=== PATIENT | male | born 1995 | race Caucasian/White ===

== ENCOUNTER 2016-12-25 22:25 | Emergency (ER) | payer OTHER ==
[~2016-12-25 22:25] MED LIST: OXYBXL10 PO
[2016-12-25 22:32] VITALS: BP 137/78; PULSE 86; RESP 16; TEMP 98.1; O2SAT 97
--- NOTE | 2016-12-25 23:01 | PD ---
HPI Chief Complaint: GI Complaint Time Seen by Provider: 22:41 Travel History International Travel<30 days: No Contact w/Intl Traveler<30days: No Traveled to known affect area: No History of Present Illness HPI The patient is a 21-year-old male with a history of ODD and ADHD and who has considerable problems verbalizing his complaints who complains of a small amount of blood in the stool for the last 2 days. He says he has some pain in the abdomen on occasion but none now. There is been no nausea or vomiting. He quit drinking alcohol many months ago. The blood is bright red. He denies any rectal pain. He denies any syncopal or dyspnea or syncopal spells. The patient apparently drinks large amounts of water. PFSH Past Medical History ADHD: Yes Diminished Hearing: Yes (DEAF SINCE 1 MONTH OF AGE) Immunizations Current: Yes Social History Alcohol Use: No (NOT SINCE 08/24) Tobacco Use: No Allergies-Medications (Allergen,Severity, Reaction): Coded Allergies: amoxicillin (Verified Allergy, Severe, Hives, 12/25/16) Reported Meds & Prescriptions Reported Meds & Active Scripts Active Review of Systems Except as stated in HPI: all other systems reviewed are Neg Physical Exam Narrative GENERAL: The patient is alert, unable to communicate orally except for some basic words which is normal for him, vital signs are normal. He appears in no apparent distress. SKIN: Focused skin assessment warm/dry. HEAD: Atraumatic. Normocephalic. EYES: Pupils equal and round. No scleral icterus. No injection or drainage. ENT: No nasal bleeding or discharge. Mucous membranes pink and moist. NECK: Trachea midline. No JVD. CARDIOVASCULAR: Regular rate and rhythm. No murmur appreciated. RESPIRATORY: No accessory muscle use. Clear to auscultation. Breath sounds equal bilaterally. GASTROINTESTINAL: Abdomen soft, non-tender, nondistended. Hepatic and splenic margins not palpable. No guarding or rebound is present. MUSCULOSKELETAL: No obvious deformities. No clubbing. No cyanosis. No edema. NEUROLOGICAL: Awake and alert. No obvious cranial nerve deficits. Motor grossly within normal limits. Normal speech. PSYCHIATRIC: Appropriate mood and affect; insight and judgment normal. RECTAL EXAM: No masses or tenderness, stool is brown and trace guaiac positive. No hemorrhoids are seen. No fissure is seen. The rectal exam was not particularly painful. Data Data Last Documented VS Vital Signs Date Time Temp Pulse Resp B/P Pulse Ox O2 Delivery O2 Flow Rate FiO2 12/25/16 22:32 98.1 86 16 137/78 97 Orders Complete Blood Count With Diff (12/25/16 22:41) Basic Metabolic Panel (Bmp) (12/25/16 22:41) Labs Laboratory Tests Test 12/25/16 23:00 White Blood Count 8.0 TH/MM3 Red Blood Count 4.42 MIL/MM3 Hemoglobin 13.6 GM/DL Hematocrit 38.2 % Mean Corpuscular Volume 86.5 FL Mean Corpuscular Hemoglobin 30.7 PG Mean Corpuscular Hemoglobin 35.5 % Concent Red Cell Distribution Width 11.8 % Platelet Count 304 TH/MM3 Mean Platelet Volume 7.9 FL Neutrophils (%) (Auto) 63.3 % Lymphocytes (%) (Auto) 25.3 % Monocytes (%) (Auto) 9.2 % Eosinophils (%) (Auto) 1.4 % Basophils (%) (Auto) 0.8 % Neutrophils # (Auto) 5.1 TH/MM3 Lymphocytes # (Auto) 2.0 TH/MM3 Monocytes # (Auto) 0.7 TH/MM3 Eosinophils # (Auto) 0.1 TH/MM3 Basophils # (Auto) 0.1 TH/MM3 CBC Comment DIFF FINAL Differential Comment Sodium Level 137 MEQ/L Potassium Level 3.4 MEQ/L Chloride Level 103 MEQ/L Carbon Dioxide Level 27.8 MEQ/L Anion Gap 6 MEQ/L Blood Urea Nitrogen 13 MG/DL Creatinine 0.93 MG/DL Estimat Glomerular Filtration 101 ML/MIN Rate Random Glucose 105 MG/DL Calcium Level 8.7 MG/DL [facility] Medical Decision Making Medical Screen Exam Complete: Yes Emergency Medical Condition: Yes Medical Record Reviewed: Yes Interpretation(s) The basic metabolic profile shows a potassium of 3.4 but is otherwise normal. The CBC is normal except for a hemoglobin of 38.2. Differential Diagnosis Lower GI bleed, rectal fissure, hemorrhoidal bleeding, rectal abscess, diverticular bleed, other colon/lower GI bleed, anemia, electrolyte disorder Narrative Course The patient has bright red rectal bleeding by history. There is only a trace amount of broad and brown stool on rectal exam. He does not show any significant anemia. The bleeding is from above the rectum and could be diverticular bleeding or any bleeding above the colon. There is no evidence on physical exam for any abscess, fissure or hemorrhoid. Diagnosis Primary Impression: Lower GI bleed Additional Instructions: Usually this goes away by itself but if this persists into next week he will need to see a senior marketing associate or colorectal surgeon who can scope him from below and find a source of the bleeding. If you think his bleeding is much greater than it has been, return him to the emergency department. Med/Other Pt SpecificInfo: No Change to Meds Disposition: 01 DISCHARGE HOME Condition: Stable Abhi Alcantara MD Dec 25, 2016 23:01
[2016-12-25 23:13] LABS: AUTOMATED NEUTROPHIL # 5.1 TH/MM3 (1.8-7.7); BASOPHIL # 0.1 TH/MM3 (0-0.2); BASOPHIL % 0.8 % (0.0-2.0); EOSINOPHIL # 0.1 TH/MM3 (0-0.4); EOSINOPHIL % 1.4 % (0.0-4.0); HEMATOCRIT 38.2 % (39.0-51.0); HEMO FLAGS DIFF FINAL; LYMPH % 25.3 % (9.0-44.0); MEAN CELL VOLUME 86.5 FL (80.0-100.0); MEAN CORPUSCULAR HEMOGLOBIN 30.7 PG (27.0-34.0); MEAN CORPUSCULAR HGB CONC 35.5 % (32.0-36.0); MONO % 9.2 % (0.0-8.0); NEUT % 63.3 % (16.0-70.0); PLATELET COUNT 304 TH/MM3 (150-450); RED BLOOD COUNT 4.42 MIL/MM3 (4.50-5.90); RED CELL DISTRIBUTION WIDTH 11.8 % (11.6-17.2)
[2016-12-25 23:20] LABS: POTASSIUM 3.4 MEQ/L (3.5-5.1)
[2016-12-25 23:23] LABS: BICARBONATE 27.8 MEQ/L (21.0-32.0)
[2016-12-26 00:26] VITALS: BP 142/76
== END 2016-12-26 00:28 | disposition home or self-care (01) ==
LOC: PHED 22:25
DX: K92.2 Gastrointestinal hemorrhage, unspecified (principal); H91.90 Unspecified hearing loss, unspecified ear; Z86.59 Personal history of other mental and behavioral disorders
CPT/HCPCS: 80048; 85025; 99283

== ENCOUNTER 2017-08-14 13:10 | Emergency (ER) | payer OTHER ==
[~2017-08-14] VITALS: Ht 182.9 cm; Wt 99.0 kg
[2017-08-14 13:23] VITALS: BP 120/79; PULSE 101; RESP 16; TEMP 98; O2SAT 99
[2017-08-14 13:33] VITALS: BP 157/87; PULSE 84; RESP 16; TEMP 98.1; O2SAT 97
[2017-08-14] MEDS ORDERED: SODIUM CHLOR 0.9% 1000 ML INJ 1,000 ML IV SCH (14:26)
--- NOTE | 2017-08-14 14:26 | PD ---
HPI Chief Complaint: GI Complaint Time Seen by Provider: 14:07 Travel History International Travel<30 days: No Contact w/Intl Traveler<30days: No Traveled to known affect area: No History of Present Illness HPI Patient is a 22-year-old deaf individual who presents emergency department with mother for evaluation of epigastric pain. Patient has a secondary complaint that he went out with friends of the night and was drinking and was encouraged to have a cigarette with cocaine in it as well as do a line of cocaine which she has never done before. Patient states is been very anxious since then and is worried that the substance may have caused him significant harm. He endorses few episodes of emesis, no diarrhea no constipation. He states his never happened to him like this before. He is concerned that he might have an ulcer. Mother does all of his translating for him and they have declined a entrepreneurial finance professor. No fevers no cough no congestion. States symptoms are moderate, epigastric, no radiation, context as above. PFSH Past Medical History ADHD: Yes Diminished Hearing: Yes (DEAF SINCE 1 MONTH OF AGE) Immunizations Current: Yes ?: Not Past Surgical History Surgical History: No Previous Surgery Social History Alcohol Use: No (NOT SINCE 08/24) Tobacco Use: No Substance Use: Yes (cocaine with marijuana 3 days ago) Allergies-Medications (Allergen,Severity, Reaction): Coded Allergies: amoxicillin (Verified Allergy, Severe, Hives, 08/14/17) Reported Meds & Prescriptions Reported Meds & Active Scripts Active Zofran (Ondansetron HCl) 4 Mg Tab 4 Mg PO Q6HR PRN Review of Systems Except as stated in HPI: all other systems reviewed are Neg Physical Exam Narrative GENERAL: Well-developed well-nourished no obvious distress. SKIN: Focused skin assessment warm/dry. HEAD: Atraumatic. Normocephalic. EYES: Pupils equal and round. No scleral icterus. No injection or drainage. ENT: No nasal bleeding or discharge. Mucous membranes pink and moist. NECK: Trachea midline. No JVD. CARDIOVASCULAR: Regular rate and rhythm. No murmur appreciated. RESPIRATORY: No accessory muscle use. Clear to auscultation. Breath sounds equal bilaterally. GASTROINTESTINAL: Abdomen soft, non-tender, nondistended. Hepatic and splenic margins not palpable. MUSCULOSKELETAL: No obvious deformities. No clubbing. No cyanosis. No edema. NEUROLOGICAL: Awake and alert. Patient is deaf otherwise no obvious cranial nerve deficits. Motor grossly within normal limits. Normal speech. PSYCHIATRIC: Appropriate mood and affect; insight and judgment normal. Data Data Last Documented VS Vital Signs Date Time Temp Pulse Resp B/P (MAP) Pulse Ox O2 Delivery O2 Flow Rate FiO2 08/14/17 17:41 08/14/17 17:05 75 17 97 Room Air 08/14/17 13:33 98.1 Orders Orders Complete Blood Count With Diff (08/14/17 14:26) Comprehensive Metabolic Panel (08/14/17 14:26) Lipase (08/14/17 14:26) Iv Access Insert/Monitor (08/14/17 14:26) Ecg Monitoring (08/14/17 14:26) Oximetry (08/14/17 14:26) Sodium Chlor 0.9% 1000 Ml Inj (Ns 1000 M (08/14/17 14:26) Sodium Chloride 0.9% Flush (Ns Flush) (08/14/17 14:30) Electrocardiogram (08/14/17 14:26) Creatine Kinase (Cpk) (08/14/17 14:36) Ct Abd/Pel W Iv Contrast(Rout) (08/14/17 ) Iohexol 350 Inj (Omnipaque 350 Inj) (08/14/17 16:56) Ed Discharge Order (08/14/17 17:22) Ketorolac Inj (Toradol Inj) (08/14/17 17:30) Labs Laboratory Tests Test 08/14/17 14:26 08/14/17 14:39 Total Creatine Kinase 227 U/L White Blood Count 15.1 TH/MM3 Red Blood Count 4.98 MIL/MM3 Hemoglobin 15.3 GM/DL Hematocrit 43.9 % Mean Corpuscular Volume 88.2 FL Mean Corpuscular Hemoglobin 30.7 PG Mean Corpuscular Hemoglobin Concent 34.8 % Red Cell Distribution Width 12.4 % Platelet Count 364 TH/MM3 Mean Platelet Volume 7.3 FL Neutrophils (%) (Auto) 87.6 % Lymphocytes (%) (Auto) 7.8 % Monocytes (%) (Auto) 4.1 % Eosinophils (%) (Auto) 0.2 % Basophils (%) (Auto) 0.3 % Neutrophils # (Auto) 13.3 TH/MM3 Lymphocytes # (Auto) 1.2 TH/MM3 Monocytes # (Auto) 0.6 TH/MM3 Eosinophils # (Auto) 0.0 TH/MM3 Basophils # (Auto) 0.0 TH/MM3 CBC Comment DIFF FINAL Differential Comment Blood Urea Nitrogen 13 MG/DL Creatinine 0.85 MG/DL Random Glucose 111 MG/DL Total Protein 8.4 GM/DL Albumin 4.3 GM/DL Calcium Level 9.2 MG/DL Alkaline Phosphatase 65 U/L Aspartate Amino Transf (AST/SGOT) 20 U/L Alanine Aminotransferase (ALT/SGPT) 43 U/L Total Bilirubin 0.7 MG/DL Sodium Level 138 MEQ/L Potassium Level 3.6 MEQ/L Chloride Level 103 MEQ/L Carbon Dioxide Level 27.1 MEQ/L Anion Gap 8 MEQ/L Estimat Glomerular Filtration Rate 111 ML/MIN Lipase 1810 U/L [facility] Medical Decision Making Medical Screen Exam Complete: Yes Emergency Medical Condition: Yes Differential Diagnosis Pancreatitis, gallstone pancreatitis, alcoholic pancreatitis, pancreatitis associated with hyperlipidemia, cholecystitis, gastritis, gastroenteritis, peptic ulcer disease Narrative Course Patient was room to the emergency department, he appears well in no obvious distress, abdomen is benign. His lipase was slightly elevated but he has not had any emesis today. He is feeling well after Toradol and would like to go home. I discussed CAT scan of the abdomen with him and his mother, CAT scan showed no significant abnormality: Last 24 hours Impressions Abdomen/Pelvis CT 08/14/17 0000 Signed Impressions: Service Date/Time: Monday, August 14, 2017 16:36 - CONCLUSION: 1. Negative CT scan of the abdomen and pelvis. Keanu Coppola MD Discussed the results with him and mother, discussed follow-up with primary care physician and symptomatic management and return to ED criteria. He was referred to a delivery mgr. He is stable for discharge Diagnosis Primary Impression: Acute pancreatitis Referrals: Maia Perez MD Med/Other Pt SpecificInfo: Prescription(s) given Scripts Ondansetron (Zofran) 4 Mg Tab 4 MG PO Q6HR Y for NAUSEA OR VOMITING, #20 TAB 0 Refills Prov: Sly Denson MD 08/14/17 Disposition: 01 DISCHARGE HOME Condition: Stable Sly Denson MD Aug 14, 2017 14:26
[2017-08-14 14:38] VITALS: O2SAT 97
[2017-08-14] MEDS: SODIUM CHLORIDE 0.9% FLUSH 10 ML FLUSH IV FLUSH PRN ×2 (14:41→17:31)
[2017-08-14 14:45] LABS: AUTOMATED NEUTROPHIL # 13.3 TH/MM3 (1.8-7.7); BASOPHIL % 0.3 % (0.0-2.0); EOSINOPHIL % 0.2 % (0.0-4.0); HEMATOCRIT 43.9 % (39.0-51.0); HEMOGLOBIN 15.3 GM/DL (13.0-17.0); LYMPH % 7.8 % (9.0-44.0); LYMPHOCYTE # 1.2 TH/MM3 (1.0-4.8); MEAN CELL VOLUME 88.2 FL (80.0-100.0); MEAN CORPUSCULAR HEMOGLOBIN 30.7 PG (27.0-34.0); MEAN CORPUSCULAR HGB CONC 34.8 % (32.0-36.0); MEAN PLATELET VOLUME 7.3 FL (7.0-11.0); MONO % 4.1 % (0.0-8.0); MONOCYTE # 0.6 TH/MM3 (0-0.9); NEUT % 87.6 % (16.0-70.0); PLATELET COUNT 364 TH/MM3 (150-450); RED BLOOD COUNT 4.98 MIL/MM3 (4.50-5.90); RED CELL DISTRIBUTION WIDTH 12.4 % (11.6-17.2); WHITE BLOOD COUNT 15.1 TH/MM3 (4.0-11.0)
[2017-08-14 14:55] LABS: CHLORIDE 103 MEQ/L (98-107); SODIUM (NA) 138 MEQ/L (136-145)
[2017-08-14 14:59] LABS: ALBUMIN 4.3 GM/DL (3.4-5.0); BICARBONATE 27.1 MEQ/L (21.0-32.0); BLOOD UREA NITROGEN 13 MG/DL (7-18); CALCIUM 9.2 MG/DL (8.5-10.1); GLUCOSE,RANDOM 111 MG/DL (74-106)
[2017-08-14 15:02] LABS: ALT (GPT) 43 U/L (12-78); AST (GOT) 20 U/L (15-37); CREATININE 0.85 MG/DL (0.60-1.30); GLOMERULAR FILTRATION RATE 111 ML/MIN (>89)
[2017-08-14 15:04] LABS: TOTAL BILIRUBIN ADULT 0.7 MG/DL (0.2-1.0); TOTAL PROTEIN 8.4 GM/DL (6.4-8.2)
[2017-08-14 15:05] LABS: ALKALINE PHOSPHATASE 65 U/L (45-117)
[2017-08-14] MEDS ORDERED: IOHEXOL 350 MG/ML 10 ML VIAL (for RAD DIAG) IVCONTRAST ONE (16:56)
[2017-08-14 17:05] VITALS: BP 146/81; PULSE 75; RESP 17; O2SAT 97
--- NOTE | 2017-08-14 17:18 | RADRPT ---
EXAM DATE/TIME: 08/14/2017 16:36 [facility] COMPARISON: No previous studies available for comparison. INDICATIONS : Abdominal pain. IV CONTRAST: 75 cc Omnipaque 350 (iohexol) IV ORAL CONTRAST: No oral contrast ingested. RADIATION DOSE: 14.45 CTDIvol (mGy) MEDICAL HISTORY : None SURGICAL HISTORY : None. ENCOUNTER: Initial ACUITY: 2 days PAIN SCALE: 5/10 LOCATION: abdomen TECHNIQUE: Volumetric scanning of the abdomen and pelvis was performed. Using automated exposure control and ad justment of the mA and/or kV according to patient size, radiation dose was kept as low as reasonably achievable to obtain optimal diagnostic quality images. DICOM format image data is available electro nically for review and comparison. FINDINGS: LOWER LUNGS: The visualized lower lungs are clear. LIVER: Homogeneous density without lesion. There is no dilation of the biliary tree. No calcified gallston es. SPLEEN: Normal size without lesion. PANCREAS: Within normal limits. KIDNEYS: Normal in size and shape. There is no mass, stone or hydronephrosis. ADRENAL GLANDS: Within normal limits. VASCULAR: There is no aortic aneurysm. BOWEL/MESENTERY: The stomach, small bowel, and colon demonstrate no acute abnormality. There is no free intraperitone al air or fluid. ABDOMINAL WALL: Within normal limits. RETROPERITONEUM: There is no lymphadenopathy. BLADDER: No wall thickening or mass. REPRODUCTIVE: Within normal limits. INGUINAL: There is no lymphadenopathy or hernia. MUSCULOSKELETAL: Within normal limits for patient age. CONCLUSION: 1. Negative CT scan of the abdomen and pelvis. Keanu Coppola MD on August 14, 2017 at 17:14 Board Certified Radiologist. This report was verified electronically.
[2017-08-14] MEDS ORDERED: ZOFR4TAB PO (17:25)
[2017-08-14] MEDS ORDERED: KETOROLAC TROMETHAMINE 30 MG/ML (IVP) VIAL IV PUSH ONE (17:30)
--- NOTE | 2017-08-16 09:41 | EKG ---
Date Performed: 08/14/2017 Time Performed: 14:33:32 PTAGE: 22 years EKG: Sinus rhythm NORMAL ECG NO PREVIOUS TRACING DOCTOR: Wilson Mcmanus Interpretating Date/Time 08/16/2017 09:41:04
== END 2017-08-14 17:42 | disposition home or self-care (01) ==
LOC: PHED 13:10
DX: K85.90 Acute pancreatitis without necrosis or infection, unspecified (principal); F90.9 Attention-deficit hyperactivity disorder, unspecified type; H91.90 Unspecified hearing loss, unspecified ear
CPT/HCPCS: 74177; 80053; 82550; 83690; 85025; 93005; 96361; 96374; 99285; J1885; J7030; Q9967

== ENCOUNTER 2017-09-30 14:31 | Observation (INO) | payer OTHER ==
[~2017-09-30] VITALS: Ht 182.9 cm; Wt 96.0 kg
[~2017-09-30 14:31] MED LIST changes: -OXYBXL10 PO; +ZOFR4TAB PO
[2017-09-30 14:34] VITALS: BP 147/87; PULSE 82; RESP 16; TEMP 98.8; O2SAT 98
[2017-09-30] MEDS ORDERED: SODIUM CHLOR 0.9% 1000 ML INJ 1,000 ML IV SCH (14:56)
[2017-09-30] MEDS ORDERED: ONDANSETRON ODT 4 MG TAB PO ONE (15:00)
[2017-09-30] MEDS ORDERED: SODIUM CHLORIDE 0.9% FLUSH 10 ML FLUSH IV FLUSH PRN ×2 (15:00→17:45)
[2017-09-30] MEDS ORDERED: PANTOPRAZOLE SOD 40 MG DELAYED RELEASE TAB PO ONE (15:00)
--- NOTE | 2017-09-30 15:14 | PD ---
HPI Chief Complaint: GI Complaint Time Seen by Provider: 14:52 Travel History International Travel<30 days: No Contact w/Intl Traveler<30days: No Traveled to known affect area: No History of Present Illness HPI 22-year-old male complains of abdominal pain with nausea vomiting diarrhea. Patient states that he has intermittent abdominal pain for the past several months. Patient stated pain and cramping pain and sharp pain localized around epigastric area. Patient denies any pain radiation. Patient states that he has increasing pain for the past 3 days. Patient states that he has intermittent nausea vomiting diarrhea for the past 3 days. Patient complains of coughing congestion with productive sputum for the past several days also. Patient denies any fever chills. Patient denies any dysuria frequency. Patient was seen in emergency room 6 weeks ago for abdominal pain. CT scan abdomen pelvis at that time was normal. Lipase was elevated. Patient was diagnosed with acute hepatitis. Patient was discharged home and was advised to follow with pouncing lathe operator. Patient has not had an appointment with gastroenterology so far. On a scale of 1-10 the pain is a 7. Patient is deaf and mom does all the interpretations. PFSH Past Medical History ADHD: Yes Anxiety: Yes Diminished Hearing: Yes (DEAF SINCE 1 MONTH OF AGE) Immunizations Current: Yes Influenza Vaccination: No Past Surgical History Surgical History: No Previous Surgery Social History Alcohol Use: No (NOT SINCE 08/24) Tobacco Use: No Substance Use: No Allergies-Medications (Allergen,Severity, Reaction): Coded Allergies: amoxicillin (Verified Allergy, Severe, Hives, 09/30/17) Reported Meds & Prescriptions Reported Meds & Active Scripts Active Review of Systems General / Constitutional: No: Fever Eyes: No: Visual changes HENT: No: Headaches Cardiovascular: No: Chest Pain or Discomfort Respiratory: Positive: Cough, No: Shortness of Breath Gastrointestinal: Positive: Nausea, Vomiting, Diarrhea, Abdominal Pain Genitourinary: No: Dysuria Musculoskeletal: No: Pain Skin: No Rash Neurologic: No: Weakness Psychiatric: No: Depression Endocrine: No: Polydipsia Hematologic/Lymphatic: No: Easy Bruising Physical Exam Narrative GENERAL: Well-nourished, well-developed patient. SKIN: Focused skin assessment warm/dry. HEAD: Normocephalic. EYES: No scleral icterus. No injection or drainage. NECK: Supple, trachea midline. No JVD or lymphadenopathy. CARDIOVASCULAR: Regular rate and rhythm without murmurs, gallops, or rubs. RESPIRATORY: Breath sounds equal bilaterally. No accessory muscle use. GASTROINTESTINAL: Abdomen soft, nondistended. Patient has mild tenderness on palpation epigastric area. No rebound tenderness. No mass. MUSCULOSKELETAL: No cyanosis, or edema. BACK: Nontender without obvious deformity. No CVA tenderness. Neurologic exam normal. Data Data Last Documented VS Vital Signs Date Time Temp Pulse Resp B/P (MAP) Pulse Ox O2 Delivery O2 Flow Rate FiO2 09/30/17 15:26 87 18 146/85 (105) 98 Room Air 09/30/17 14:34 98.8 Orders Orders Complete Blood Count With Diff (09/30/17 14:56) Comprehensive Metabolic Panel (09/30/17 14:56) Lipase (09/30/17 14:56) Urinalysis - C+S If Indicated (09/30/17 14:56) Iv Access Insert/Monitor (09/30/17 14:56) Ecg Monitoring (09/30/17 14:56) Oximetry (09/30/17 14:56) Sodium Chlor 0.9% 1000 Ml Inj (Ns 1000 M (09/30/17 14:56) Sodium Chloride 0.9% Flush (Ns Flush) (09/30/17 15:00) Ondansetron Odt (Zofran Odt) (09/30/17 15:00) Pantoprazole (Protonix) (09/30/17 15:00) Ct Abd/Pel W Iv Contrast(Rout) (09/30/17 15:07) Chest, Single Ap (09/30/17 15:12) Labs Laboratory Tests Test 09/30/17 15:15 White Blood Count 9.9 TH/MM3 Red Blood Count 5.14 MIL/MM3 Hemoglobin 15.4 GM/DL Hematocrit 45.1 % Mean Corpuscular Volume 87.8 FL Mean Corpuscular Hemoglobin 30.0 PG Mean Corpuscular Hemoglobin Concent 34.2 % Red Cell Distribution Width 11.9 % Platelet Count 399 TH/MM3 Mean Platelet Volume 7.7 FL Neutrophils (%) (Auto) 83.6 % Lymphocytes (%) (Auto) 11.4 % Monocytes (%) (Auto) 4.6 % Eosinophils (%) (Auto) 0.0 % Basophils (%) (Auto) 0.4 % Neutrophils # (Auto) 8.3 TH/MM3 Lymphocytes # (Auto) 1.1 TH/MM3 Monocytes # (Auto) 0.5 TH/MM3 Eosinophils # (Auto) 0.0 TH/MM3 Basophils # (Auto) 0.0 TH/MM3 CBC Comment DIFF FINAL Differential Comment Blood Urea Nitrogen 13 MG/DL Creatinine 1.00 MG/DL Random Glucose 110 MG/DL Total Protein 9.2 GM/DL Albumin 4.8 GM/DL Calcium Level 9.9 MG/DL Alkaline Phosphatase 69 U/L Aspartate Amino Transf (AST/SGOT) 15 U/L Alanine Aminotransferase (ALT/SGPT) 34 U/L Total Bilirubin 0.8 MG/DL Sodium Level 139 MEQ/L Potassium Level 3.5 MEQ/L Chloride Level 104 MEQ/L Carbon Dioxide Level 27.9 MEQ/L Anion Gap 7 MEQ/L Estimat Glomerular Filtration Rate 92 ML/MIN Lipase 1889 U/L [facility] Medical Decision Making Medical Screen Exam Complete: Yes Emergency Medical Condition: Yes Interpretation(s) Last Impressions Chest X-Ray 09/30/17 1512 Signed Impressions: CONCLUSION: No active disease. 1551 PM. CBC within normal limits. WBC 9.9. 83 neutrophil. CMP within normal limits. Lipase 1889. Differential Diagnosis Differential diagnosis including gastritis, PUD, thank otitis, cholecystitis, colitis, UTI, pyelonephritis, nephrolithiasis, appendicitis. Narrative Course 22-year-old male with epigastric abdominal pain nausea vomiting diarrhea. History of recurrent abdominal pain. Normal saline solution 125 cc an hour. Protonix 40 mg p.o. Zofran 4 mg ODT. Diagnosis Primary Impression: Acute pancreatitis Qualified Codes: K85.90 - Acute pancreatitis without necrosis or infection, unspecified Admitting Information Admitting Physician Requests: Observation John Delvalle MD September 30, 2017 15:14
[2017-09-30 15:22] LABS: BLOOD, URINE NEG (NEG); GLUCOSE,URINE NEG (NEG); KETONE, URINE 80 OR GREATER mg/dL (NEG); NITRITE,URINE NEG (NEG); PH, URINE 5.5 (5.0-8.5); URINE COLOR YELLOW (YELLW/STRAW); URINE LEUKOCYTE ESTERASE NEG (NEG)
[2017-09-30 15:24] LABS: AUTOMATED NEUTROPHIL # 8.3 TH/MM3 (1.8-7.7); BASOPHIL % 0.4 % (0.0-2.0); HEMATOCRIT 45.1 % (39.0-51.0); HEMOGLOBIN 15.4 GM/DL (13.0-17.0); LYMPH % 11.4 % (9.0-44.0); LYMPHOCYTE # 1.1 TH/MM3 (1.0-4.8); MEAN CELL VOLUME 87.8 FL (80.0-100.0); MEAN CORPUSCULAR HGB CONC 34.2 % (32.0-36.0); MEAN PLATELET VOLUME 7.7 FL (7.0-11.0); MONO % 4.6 % (0.0-8.0); MONOCYTE # 0.5 TH/MM3 (0-0.9); NEUT % 83.6 % (16.0-70.0); PLATELET COUNT 399 TH/MM3 (150-450); RED BLOOD COUNT 5.14 MIL/MM3 (4.50-5.90); RED CELL DISTRIBUTION WIDTH 11.9 % (11.6-17.2); WHITE BLOOD COUNT 9.9 TH/MM3 (4.0-11.0)
[2017-09-30 15:25] VITALS: RESP 20; O2SAT 98
[2017-09-30 15:26] VITALS: BP 146/85; PULSE 87; RESP 18; O2SAT 98
[2017-09-30 15:29] LABS: CHLORIDE 104 MEQ/L (98-107); SODIUM (NA) 139 MEQ/L (136-145)
[2017-09-30 15:32] LABS: CALCIUM 9.9 MG/DL (8.5-10.1)
[2017-09-30 15:33] LABS: ALBUMIN 4.8 GM/DL (3.4-5.0); BICARBONATE 27.9 MEQ/L (21.0-32.0); BLOOD UREA NITROGEN 13 MG/DL (7-18); GLUCOSE,RANDOM 110 MG/DL (74-106)
[2017-09-30 15:35] LABS: ALT (GPT) 34 U/L (12-78); AST (GOT) 15 U/L (15-37)
[2017-09-30 15:36] LABS: GLOMERULAR FILTRATION RATE 92 ML/MIN (>89)
[2017-09-30 15:37] LABS: TOTAL BILIRUBIN ADULT 0.8 MG/DL (0.2-1.0); TOTAL PROTEIN 9.2 GM/DL (6.4-8.2)
[2017-09-30 15:38] LABS: ALKALINE PHOSPHATASE 69 U/L (45-117)
--- NOTE | 2017-09-30 15:45 | RADRPT ---
EXAM DATE: 09/30/2017 3:37 PM EDT AGE/SEX: 22 years / Male INDICATIONS: Cough and congestion. CLINICAL DATA: This is the patient's initial encounter. Patient reports that signs and symptoms have been present for 3 days and indicates a pain score of 0/10. MEDICAL/SURGICAL HISTORY: None. None. COMPARISON: No prior [place] exams available for comparison. FINDINGS: A single AP view of the chest demonstrates the lungs to be symmetrically aerated without evidence of mass, infiltrate or effusion. The cardiomediastinal contours are unremarkable. Osseous structures a re intact. CONCLUSION: No active disease. Electronically signed by: Mynor Boone MD 09/30/2017 3:44 PM EDT
[2017-09-30] MEDS ORDERED: IOHEXOL 350 MG/ML 10 ML VIAL (for RAD DIAG) IVCONTRAST ONE (16:01)
[2017-09-30 16:02] LABS: BILIRUBIN, URINE NEG (NEG)
[2017-09-30 16:04] LABS: RBC, URINE 0-3 /hpf (0-3); SQUAMOUS EPITHELIAL CELL URINE 0-5 /hpf (0-5); WBC, URINE 0-2 /hpf (0-5)
--- NOTE | 2017-09-30 16:09 | RADRPT ---
EXAM DATE: 09/30/2017 4:00 PM EDT AGE/SEX: 22 years / Male INDICATIONS: Epigastric pain. Nausea, vomiting and diarrhea. CLINICAL DATA: This is the patient's initial encounter. Patient reports that signs and symptoms have been present for 3 days and indicates a pain score of 7/10. MEDICAL/SURGICAL HISTORY: None. None. ORAL CONTRAST: No oral contrast ingested. RADIATION DOSE: 15.82 CTDI (mGy) COMPARISON: [facility], CT ABDOMEN & PELVIS W CONTRAST, 08/14/2017. . TECHNIQUE: Multiple contiguous axial images were obtained through the abdomen and pelvis following b olus infusion of 90 ml Omnipaque 350 (iohexol) nonionic water-soluble contrast as a single exam dos e. No oral contrast ingested. Using automated exposure control and adjustment of the mA and/or kV ac cording to patient size, the radiation dose was kept as low as reasonably achievable to obtain optima l diagnostic quality images. FINDINGS: LOWER LUNGS: The visualized lower lungs are clear. LIVER: The liver has a homogeneous density without space-occupying lesion. There is no dilation of t he biliary tree. SPLEEN: Homogeneous density without enlargement. PANCREAS: Unremarkable without mass or calcification. KIDNEYS: Kidneys demonstrate symmetrical enhancement and are symmetrical in size without evidence fo r radiopaque renal calculi or hydronephrosis. ADRENAL GLANDS: Unremarkable. AORTA: Maggy-aneurysmal. BOWEL/MESENTERY: The bowel loops are grossly unremarkable. The cecum and sigmoid colon have a rosalia l configuration. Appendix is normal in appearance. ABDOMINAL WALL: Intact. RETROPERITONEUM: No evidence of adenopathy in the retrocrural, para-aortic, or deep pelvic regions. BLADDER: Contours are smooth. REPRODUCTIVE: No abnormal masses or calcifications seen. BONY STRUCTURES: Unremarkable. CONCLUSION: 1. No acute CT abnormality to account for patient's abdominal pain. 2. Normal appendix. Electronically signed by: Herberth Garner MD 09/30/2017 4:08 PM EDT
[2017-09-30 16:48] VITALS: BP 154/78; PULSE 84; RESP 18; O2SAT 98
--- NOTE | 2017-09-30 17:44 | HHI.HP ---
[facility] Service [place] [facility] Primary Care Physician No Primary Care Physician Admission Diagnosis Acute pancreatitis Diagnoses: (1) Elevated lipase Diagnosis: Principal Chief Complaint: Chronic abdominal pain Travel History International Travel<30 Days: No Contact w/Intl Traveler <30 Da: No Traveled to Known Affected Are: No History of Present Illness Written by Grayson Alcantara, acting as scribe for Dr. Poon on 09/30/17 at 17: 43. 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 Information was taken from mother and patient. Mother acting as per diem interpreter with sign language. Apparently the patient needs to have a rather extensive drinking habit from age [age] and he quit drinking because he had significant headache and abdominal pain 1 year ago. Since then he has been having intermittent abdominal pain mainly located in the epigastric region without any radiation into the back. Patient has had previous workup done in the emergency department and found to have elevated lipase level without any radiological findings for pancreatitis. Apparently over the last 3 days the patient has been experiencing his epigastric abdominal discomfort again without any radiation. He has had some nausea and vomiting one episode last night and one episode today with yellow vomitus. He did have some diarrhea this morning. Mother indicates that he has been very anxious about his discomfort and has text her numerous amount of times. Patient was brought to the emergency department for evaluation and again was found to have an elevated lipase level without any radiological finding of pancreatitis or abnormality. Is recommended by the ER physician the patient be observed in the hospital for further evaluation and management. Patient family does have significant history with generation jumps of the sensorineural hearing loss. His younger brother also has hypertension as well as hyperlipidemia. Mother indicates that herself as well as her family have significant history of ulcers and GI problems. Review of Systems Ears, nose, mouth, throat: COMPLAINS OF: Hearing loss Gastrointestinal: COMPLAINS OF: Abdominal pain, Diarrhea, Nausea, Vomiting Except as stated in HPI: all other systems reviewed are Neg Past Family Social History Past Medical History History of alcohol abuse Central neural hearing loss Anxiety History of tobacco use Past Surgical History No previous surgeries Reported Medications No home medication Allergies: Coded Allergies: amoxicillin (Verified Allergy, Severe, Hives, 09/30/17) Family History Reviewed is significant for a younger brother with hypertension, hyperlipidemia. Mother indicates that her family is significant for gastric ulcers Social History Patient quit using alcohol approximately 1 year ago, prior to that he smoked from age [age] and he indicates that he drinks quite a bit to include a whole bottle of alcohol and beer daily. Patient did have history of tobacco use in which he smoked from age [age], 1 pack of cigarettes a day. Denies any illicit drug use Physical Exam Vital Signs Vital Signs Date Time Temp Pulse Resp B/P (MAP) Pulse Ox O2 Delivery O2 Flow Rate FiO2 09/30/17 16:48 84 18 154/78 (103) 98 Room Air 09/30/17 15:26 87 18 146/85 (105) 98 Room Air 09/30/17 15:25 20 98 Room Air 09/30/17 14:34 98.8 82 16 147/87 (107) 98 Physical Exam GENERAL: Well-developed, well-nourished, in no acute distress. alert and orientated HEENT: Head is normocephalic without any lesions or masses noted. Facial features are symmetric. Eyes: Pupils equal round reactive to light. Extraocular muscles are intact. Conjunctivae were clear. Oropharyngeal: Pharynx without any erythema edema. Tongue is midline without deviation. Buccal mucosa is moist without any masses or lesions NECK: Supple without any masses. Trachea midline no deviation. No JVD, no bruits are appreciated CARDIAC: Regular rhythm, regular rate. S1/S2 are heard. No murmurs gallops or rubs. LUNGS: Clear to auscultation bilaterally. No wheeze, rhonchi or rales. No use of accessory muscles on inspiration or expiration. ABDOMEN: Soft, mild tenderness noted in the epigastric region. Nondistended. Bowel sounds heard in all 4 quadrants. No organomegaly or masses. Negative rebound, negative guarding EXTREMITIES: No edema, pulses are equal bilaterally. No cyanosis or clubbing NEUROLOGY: Mood and affect appear appropriate. Cranial nerves II through XII grossly intact. Muscle strength 5/5 in upper and lower extremities bilaterally. Deep tendon reflexes are 2+ in upper and lower extremities bilaterally. Laboratory Laboratory Tests Test 09/30/17 15:15 White Blood Count 9.9 Red Blood Count 5.14 Hemoglobin 15.4 Hematocrit 45.1 Mean Corpuscular Volume 87.8 Mean Corpuscular Hemoglobin 30.0 Mean Corpuscular Hemoglobin Concent 34.2 Red Cell Distribution Width 11.9 Platelet Count 399 Mean Platelet Volume 7.7 Neutrophils (%) (Auto) 83.6 Lymphocytes (%) (Auto) 11.4 Monocytes (%) (Auto) 4.6 Eosinophils (%) (Auto) 0.0 Basophils (%) (Auto) 0.4 Neutrophils # (Auto) 8.3 Lymphocytes # (Auto) 1.1 Monocytes # (Auto) 0.5 Eosinophils # (Auto) 0.0 Basophils # (Auto) 0.0 CBC Comment DIFF FINAL Differential Comment Urine Collection Type CLEAN CATCH Urine Color YELLOW Urine Turbidity CLEAR Urine pH 5.5 Urine Specific [place] GREATER/EQUAL 1.030 Urine Protein TRACE Urine Glucose (UA) NEG Urine Ketones 80 OR GREATER Urine Occult Blood NEG Urine Nitrite NEG Urine Bilirubin NEG Urine Urobilinogen 1.0 Urine Leukocyte Esterase NEG Urine RBC 0-3 Urine WBC 0-2 Urine Squamous Epithelial Cells 0-5 Microscopic Urinalysis Comment CULT NOT INDICATED Urine Collection Time 15:15 Blood Urea Nitrogen 13 Creatinine 1.00 Random Glucose 110 Total Protein 9.2 Albumin 4.8 Calcium Level 9.9 Alkaline Phosphatase 69 Aspartate Amino Transf (AST/SGOT) 15 Alanine Aminotransferase (ALT/SGPT) 34 Total Bilirubin 0.8 Sodium Level 139 Potassium Level 3.5 Chloride Level 104 Carbon Dioxide Level 27.9 Anion Gap 7 Estimat Glomerular Filtration Rate 92 Lipase 1889 Result Diagram: 09/30/17 1515 09/30/17 1515 Imaging Last Impressions Chest X-Ray 09/30/17 1512 Signed Impressions: CONCLUSION: No active disease. Abdomen/Pelvis CT 09/30/17 1507 Signed Impressions: CONCLUSION: 1. No acute CT abnormality to account for patient's abdominal pain. 2. Normal appendix. Caprini VTE Risk Assessment Caprini VTE Risk Assessment: No/Low Risk (score <= 1) Caprini Risk Assessment Model Point Value = 1 Point Value = 2 Point Value = 3 Point Value = 5 Age 41-60 Minor surgery BMI > 25 kg/m2 Swollen legs Varicose veins or History of unexplained or recurrent spontaneous Oral contraceptives or hormone replacement Sepsis (< 1 month) Serious lung disease, including pneumonia (< 1 month) Abnormal pulmonary function Acute myocardial infarction Congestive heart failure (< 1 month) History of inflammatory bowel disease Medical patient at bed rest Age 61-74 Arthroscopic surgery Major open surgery (> 45 min) Laparoscopic surgery (> 45 min) Malignancy Confined to bed (> 72 hours) Immobilizing plaster cast Central venous access Age >= 75 History of VTE Family history of VTE Factor V Leiden Prothrombin [id number] Lupus anticoagulant Anticardiolipin antibodies Elevated serum homocysteine Heparin-induced thrombocytopenia Other congenital or acquired thrombophilia Stroke (< 1 month) Elective arthroplasty Hip, pelvis, or leg fracture Acute spinal cord injury (< 1 month) Prophylaxis Regimen Total Risk Factor Score Risk Level Prophylaxis Regimen 0-1 Low Early ambulation 2 Moderate Order ONE of the following: *Sequential Compression Device (SCD) *Heparin 5000 units SQ BID 3-4 Higher Order ONE of the following medications: *Heparin 5000 units SQ TID *Enoxaparin/Lovenox 40 mg SQ daily (WT < 150 kg, CrCl > 30 mL/min) *Enoxaparin/Lovenox 30 mg SQ daily (WT < 150 kg, CrCl > 10-29 mL/min) *Enoxaparin/Lovenox 30 mg SQ BID (WT < 150 kg, CrCl > 30 mL/min) AND/OR *Sequential Compression Device (SCD) 5 or more Highest Order ONE of the following medications: *Heparin 5000 units SQ TID (Preferred with Epidurals) *Enoxaparin/Lovenox 40 mg SQ daily (WT < 150 kg, CrCl > 30 mL/min) *Enoxaparin/Lovenox 30 mg SQ daily (WT < 150 kg, CrCl > 10-29 mL/min) *Enoxaparin/Lovenox 30 mg SQ BID (WT < 150 kg, CrCl > 30 mL/min) AND *Sequential Compression Device (SCD) Assessment and Plan Assessment and Plan 22-year-old male who presents to the hospital with 1 year history of intermittent abdominal pain with nausea, vomiting and diarrhea Recurrent abdominal pain with elevated lipase -Multiple C CT scans done of the abdomen did not indicate any acute abnormality or signs of pancreatitis or obstruction -Patient could have possible chronic pancreatitis due to his extensive short history of alcohol consumption, or secondary to hyperlipidemia as his younger brother has early onset hyperlipidemia. -Clear liquid diet -IV fluids -Continue pain control -Gastroenterology was consulted by ER physician, discussed case with them who recommended MRCP -We will obtain MRCP -Continue to trend lipase level, obtain triglyceride level Anxiety -Xanax as needed DVT prevention -Low risk, early ambulation This note was transcribed by ector Alcantara. I, Dr. Johny Poon personally performed the history, physical exam, and medical decision making; and confirmed the accuracy of the information in the transcribed note. Authenticated by Dr. Johny Poon on 09/30/17 at 17:43. Code Status Full code Discussed Condition With Patient, mother, ED physician Grayson Alcantara September 30, 2017 17:44 Johny Poon MD September 30, 2017 17:45
[2017-09-30] MEDS ORDERED: NALOXONE HCL 0.4 MG/ML AMP IV PUSH PRN (17:45)
[2017-09-30] MEDS ORDERED: ONDANSETRON HCL 4 MG/2 ML VIAL IVP PRN (17:45)
[2017-09-30] MEDS ORDERED: KETOROLAC TROMETHAMINE 30 MG/ML (IVP) VIAL IV PUSH PRN ×2 (17:45)
[2017-09-30] MEDS ORDERED: MAGNESIUM HYDROXIDE SUSP 30 ML CUP PO PRN (17:45)
[2017-09-30] MEDS ORDERED: ACETAMINOPHEN 325 MG TAB PO PRN (17:45)
[2017-09-30 20:00] VITALS: BP_SYST 121; BP_SYST 127; BP_DIAS 68; BP_DIAS 84; PULSE 80; PULSE 86; RESP 14; RESP 15; TEMP 97.3; TEMP 98; O2SAT 95; O2SAT 96
[2017-09-30] MEDS: ALPRAZolam 0.5 MG TAB PO SCH (20:26)
[2017-09-30] MEDS: SODIUM CHLOR 0.9% 1000 ML INJ 1,000 ML IV SCH (20:28)
[2017-09-30] MEDS: SODIUM CHLORIDE 0.9% FLUSH 10 ML FLUSH IV FLUSH SCH (20:33)
[2017-10-01] VITALS: BP 132/79; PULSE 90; RESP 17; TEMP 98; O2SAT 96
[2017-10-01] MEDS: ALPRAZolam 0.5 MG TAB PO SCH ×3 (00:33→10:55)
[2017-10-01] MEDS: SODIUM CHLOR 0.9% 1000 ML INJ 1,000 ML IV SCH ×3 (03:05→10:53)
[2017-10-01 07:57] VITALS: BP 142/83; PULSE 71; RESP 20; TEMP 96.7; O2SAT 99
[2017-10-01] MEDS: SODIUM CHLORIDE 0.9% FLUSH 10 ML FLUSH IV FLUSH SCH (09:00)
[2017-10-01] MEDS ORDERED: PANTOPRAZOLE SOD 40 MG DELAYED RELEASE TAB PO SCH (09:00)
--- NOTE | 2017-10-01 10:33 | RADRPT ---
EXAM DATE: 10/01/2017 10:23 AM EDT AGE/SEX: 22 years / Male INDICATIONS: Abdominal pain. CLINICAL DATA: This is the patient's initial encounter. Patient reports that signs and symptoms have been present for 3 days and indicates a pain score of 6/10. MEDICAL/SURGICAL HISTORY: None. None. COMPARISON: [facility], CT ABDOMEN & PELVIS W CONTRAST, 09/30/2017. . TECHNIQUE: Multiplanar, multisequence images of the abdomen were obtained without contrast including dedicated cholangiographic images. FINDINGS: Liver: The liver is homogeneous and normal in signal intensity with no focal defects. Intrahepatic Bile Ducts: There is no intrahepatic biliary ductal dilatation. Common Bile Duct: The common bile duct is normal in caliber No filling defects or obstructing lesio ns are identified. Gallbladder: The gallbladder is normal with no evidence for cholelithiasis, gallbladder wall thicken ing, or pericholecystic fluid. Pancreas: The pancreas appears normal in signal with no focal parenchymal abnormalities. The pancrea tic duct is normal in caliber with no filling defects, or obstructing lesions identified. CONCLUSION: Negative MRCP non contrast. Electronically signed by: Rubén Martinez MD 10/01/2017 10:32 AM EDT
--- NOTE | 2017-10-01 11:15 | HHI.PR ---
Subjective Remarks Follow-up chronic pancreatitis/elevated lipase/abdominal pain October 01, 2017-patient seen and examined, still with some abdominal pain however able to tolerate p.o. MRCP performed this morning and results unremarkable. Mom by the bedside and reported patient is quite anxious, and she is also concerned about possible ulcer disease. Objective Vitals Vital Signs Date Time Temp Pulse Resp B/P (MAP) Pulse Ox O2 Delivery O2 Flow Rate FiO2 10/01/17 07:57 96.7 71 20 142/83 (102) 99 10/01/17 00:00 98.0 90 17 132/79 (96) 96 09/30/17 20:00 98.0 86 14 121/68 (85) 95 09/30/17 20:00 97.3 80 15 127/84 (98) 96 09/30/17 16:48 84 18 154/78 (103) 98 Room Air 09/30/17 15:26 87 18 146/85 (105) 98 Room Air 09/30/17 15:25 20 98 Room Air 09/30/17 14:34 98.8 82 16 147/87 (107) 98 I/O 09/30/17 09/30/17 09/30/17 10/01/17 10/01/17 10/01/17 07:00 15:00 23:00 07:00 15:00 23:00 Intake Total 1000 ml 1000 ml Balance 1000 ml 1000 ml Intake IV Total 1000 ml 1000 ml # Voids 1 Result Diagram: 09/30/17 1515 09/30/17 1515 Imaging Last Impressions Cholangiopancreatography MRI 10/01/17 0000 Signed Impressions: CONCLUSION: Negative MRCP non contrast. Chest X-Ray 09/30/17 1512 Signed Impressions: CONCLUSION: No active disease. Abdomen/Pelvis CT 09/30/17 1507 Signed Impressions: CONCLUSION: 1. No acute CT abnormality to account for patient's abdominal pain. 2. Normal appendix. Objective Remarks GENERAL: NAD SKIN: Warm and dry. HEAD: Normocephalic. EYES: No scleral icterus. No injection or drainage. NECK: Supple, trachea midline. No JVD or lymphadenopathy. CARDIOVASCULAR: Regular rate and rhythm without murmurs, gallops, or rubs. RESPIRATORY: Breath sounds equal bilaterally. No accessory muscle use. GASTROINTESTINAL: Abdomen soft, non-tender, nondistended. MUSCULOSKELETAL: No cyanosis, or edema. BACK: Nontender without obvious deformity. No CVA tenderness. A/P Problem List: (1) Elevated lipase ICD Code: R74.8 - Abnormal levels of other serum enzymes Assessment and Plan 22-year-old male who presents to the hospital with 1 year history of intermittent abdominal pain with nausea, vomiting and diarrhea Recurrent abdominal pain with elevated lipase -Multiple C CT scans done of the abdomen did not indicate any acute abnormality or signs of pancreatitis or obstruction -Patient could have possible chronic pancreatitis due to his extensive short history of alcohol consumption, or secondary to hyperlipidemia as his younger brother has early onset hyperlipidemia. -Clear liquid diet -IV fluids -Continue pain control -Gastroenterology was consulted by ER physician, however will cancel that outpatient follow outpatient with GI -MRCP October 01, 2017, with report unremarkable -Continue to trend lipase level, triglyceride level pending -Start Pepcid Anxiety -Xanax as needed DVT prevention -Low risk, early ambulation Discharge Planning Discharge patient to home Condition on discharge: Improved Regular Diet as tolerated Ad Yamilex activity Rx written:see EMR Follow-up with primary care physician in 1 week Johny Poon MD October 01, 2017 11:15
[2017-10-01] MEDS ORDERED: FAMO1TAB37 PO (11:16)
[2017-10-01 11:34] VITALS: BP 139/79; PULSE 69; RESP 20; TEMP 97; O2SAT 99
[2017-10-01 11:55] LABS: TRIGLYCERIDES 44 MG/DL (42-150)
== END 2017-10-01 14:23 | disposition home or self-care (01) ==
LOC: PHED 14:31 → PHEDA 16:44 → PH3A 17:47
PROVIDERS: ADMIT Hospitalist; ATTEND Hospitalist
DX: K85.90 Acute pancreatitis without necrosis or infection, unspecified (principal); R10.9 Unspecified abdominal pain; R11.2 Nausea with vomiting, unspecified; R19.7 Diarrhea, unspecified; R05 Cough; R09.81 Nasal congestion; B17.9 Acute viral hepatitis, unspecified; H90.5 Unspecified sensorineural hearing loss; F90.9 Attention-deficit hyperactivity disorder, unspecified type; F41.9 Anxiety disorder, unspecified; R74.8 Abnormal levels of other serum enzymes; Z87.891 Personal history of nicotine dependence; Z82.49 Family history of ischemic heart disease and other diseases of the circulatory system
CPT/HCPCS: 71045; 74177; 74181; 76377; 80053; 81001; 82150; 83690; 84478; 85025; 96361; 96374; 99285; G0378; J2405; J7030; Q9967